=== PATIENT | male | born 1995 | race Hispanic/Latino ===

== ENCOUNTER 2017-05-14 12:41 | Inpatient (IN) | payer MEDICAID, OTHER ==
[2017-05-14 12:55] VITALS: O2SAT 100
--- NOTE | 2017-05-14 13:22 | ED PDOC ---
HPI: Psych/Substance Abuse Time Seen by Provider: 05/14/17 12:52 Chief Complaint (Nursing): Psychiatric Evaluation Chief Complaint (Provider): Psychiatric Evaluation History Per: Patient History/Exam Limitations: no limitations Suicide/Self Injury Attempted (Context): Other (scratching himself) Modifying Factor(s): None Associated Symptoms: Paranoia Additional Complaint(s): 22 year old male brought in by EMS presents to ED for bizarre behavior and as has a history of autism as per Thierry. EMS states patient was found wandering around outside and acting bizarrely. Patient states that he ran away from home and believes his family is after him. Notes that he hears their voices when they are not present physically. Denies headache but states that his "mind is hurting". (+) scratching his own face. Notes that he has not taken lithium or Zyprexa today. PCP: None Past Medical History Reviewed: Historical Data, Nursing Documentation, Vital Signs Vital Signs: Last Vital Signs Temp 98.0 F 05/14/17 12:47 Pulse 102 H 05/14/17 12:47 Resp 16 05/14/17 12:47 BP 124/90 05/14/17 12:47 Pulse Ox 100 05/14/17 12:47 - Medical History PMH: Bipolar Disorder, Schizophrenia Denies: Diabetes, Hepatitis, HIV, HTN, Seizures, Sexually Transmitted Disease - Family History Family History: States: Unknown Family Hx - Living Arrangements Living Arrangements: With Family - Social History Current smoker - smoking cessation education provided: No Ex-Smoker (has not smoked in the last 12 months): No Alcohol: None Drugs: Denies - Immunization History Hx Tetanus Toxoid Vaccination: No Hx Influenza Vaccination: No Hx Pneumococcal Vaccination: No - Home Medications Home Medications: Ambulatory Orders Medication Instructions Recorded Ziprasidone [Geodon] 80 mg PO BID 05/14/17 - Allergies Allergies/Adverse Reactions: Allergies Allergy/AdvReac Type Severity Reaction Status Date / Time No Known Allergies Allergy Verified 05/14/17 12:47 Review of Systems ROS Statement: Except As Marked, All Systems Reviewed And Found Negative Neurological: Negative for: Headache Psych: Positive for: Psychosis ((+) auditory hallucinations - hearing family), Other ((+) self-injury) Physical Exam - Reviewed Nursing Documentation Reviewed: Yes Vital Signs Reviewed: Yes - Physical Exam Appears: Positive for: Non-toxic, No Acute Distress Head Exam: Positive for: ATRAUMATIC, NORMOCEPHALIC Skin: Positive for: Normal Color (superficial abrasions noted to face), Warm, Dry Eye Exam: Positive for: Normal appearance ENT: Positive for: Normal ENT Inspection Neck: Positive for: Normal, Painless ROM Cardiovascular/Chest: Positive for: Regular Rate, Rhythm. Negative for: Murmur Respiratory: Positive for: Normal Breath Sounds. Negative for: Respiratory Distress Gastrointestinal/Abdominal: Positive for: Normal Exam, Soft. Negative for: Tenderness Back: Positive for: Normal Inspection Extremity: Positive for: Normal ROM, Other (Superficial abrasions noted to bilateral hands). Negative for: Deformity Neurologic/Psych: Positive for: Alert, Oriented, Mood/Affect (smiling, cooperative). Negative for: Motor/Sensory Deficits - Laboratory Results Result Diagrams: 05/14/17 13:42 05/14/17 13:42 - ECG O2 Sat by Pulse Oximetry: 100 (RA) Pulse Ox Interpretation: Normal Medical Decision Making Medical Decision Makin Initial impression: autism, paranoia Initial plan: * CT HEAD * EtOH serum * Labs * UDrug screen * [place] * Crisis eval * 1:1 OBS * UA Scribe Attestation: Documented by Adry Del Rosario, acting as a scribe for Jaden Cuba. Provider Scribe Attestation: All medical record entries made by the Scribe were at my direction and personally dictated by me. I have reviewed the chart and agree that the record accurately reflects my personal performance of the history, physical exam, medical decision making, and the department course for this patient. I have also personally directed, reviewed, and agree with the discharge instructions and disposition. ED OBSERVATION Date of observation admission: 05/14/17 Time of observation admission: 13:02 - Observation admission statement Patient is being placed in observation because:: crisis eval - Progress Note Progress Note: 05/14/17 15:[address] head w/o contrast: negative 05/14/17 17:33 Pt. evaluated by crisis and arrangements made for admission at the request of Dr. Mendoza. 05/14/17 20:41 Pt.'s mother arrived in ED and report that they do not have POA and she does agree with care. Disposition - Clinical Impression Clinical Impression: Schizophrenia, unspecified - Patient ED Disposition Is Patient to be Admitted: Yes - Disposition Disposition Time: 17:33 Condition: STABLE
[2017-05-14 13:52] LABS: BASO % 0.5 % (0.0-2.0); EOS % 0.3 % (0.0-4.0); LYMPH # 0.9 K/uL (1.0-4.3); LYMPH % 14.7 % (20.0-40.0); MEAN CELL VOLUME 91.2 fl (80.0-94.0); MEAN CORPUSCULAR HEMOGLOBIN 30.7 pg (27.0-31.0); MEAN CORPUSCULAR HGB CONC 33.6 g/dL (33.0-37.0); MEAN PLATELET VOLUME 8.2 fl (7.2-11.7); MONO # 0.5 K/uL (0.0-0.8); MONO % 7.9 % (0.0-10.0); NEUT # 4.5 K/uL (1.8-7.0); NEUT % 76.6 % (50.0-75.0); NRBC % 0.1 % (0.0-0.0); RED CELL DISTRIBUTION WIDTH 13.4 % (11.5-14.5); WHITE BLOOD COUNT 5.8 K/uL (4.8-10.8)
[2017-05-14 14:17] LABS: ALB/GLOB RATIO 1.7 (1.0-2.1); ALCOHOL SERUM < 10 mg/dl (0-10); ALKALINE PHOSPHATASE 65 U/L (38-126); ALT/SGPT 28 U/L (21-72); AST/SGOT 22 U/L (17-59); BILIRUBIN,TOTAL 0.5 mg/dl (0.2-1.3); BLOOD UREA NITROGEN 13 mg/dl (9-20); CALCIUM 9.7 mg/dL (8.4-10.2); CARBON DIOXIDE 25 mmol/L (22-30); CHLORIDE 106 mmol/L (98-107); GFR AFRICAN-AMERICAN > 60; GLUCOSE,RANDOM 96 mg/dL (75-110); SODIUM 143 mmol/l (132-148); TOTAL PROTEIN 7.1 G/DL (6.3-8.2)
--- NOTE | 2017-05-14 14:48 | CT ---
PROCEDURE: CT HEAD WITHOUT CONTRAST. HISTORY: "mind hurting" COMPARISON: None available. TECHNIQUE: Axial computed tomography images were obtained through the head/brain without intravenous contrast. Radiation dose: Total exam DLP = 1329.04 mGy-cm. This CT exam was performed using one or more of the following dose reduction techniques: Automated exposure control, adjustment of the mA and/or kV according to patient size, and/or use of iterative reconstruction technique. FINDINGS: HEMORRHAGE: No intracranial hemorrhage. BRAIN: No mass effect or edema. No atrophy or chronic microvascular ischemic changes. VENTRICLES: Unremarkable. No hydrocephalus. CALVARIUM: Unremarkable. PARANASAL SINUSES: Unremarkable as visualized. No significant inflammatory changes. MASTOID AIR CELLS: Unremarkable as visualized. No inflammatory changes. OTHER FINDINGS: None. IMPRESSION: Normal CT of the Head. No intracranial mass, hemorrhage or evidence of acute infarct.
[2017-05-14 14:58] LABS: RBC URINE 3 /hpf (0-3); URINE BACTERIA RARE (<OCC); URINE BILIRUBIN NEGATIVE (NEGATIVE); URINE BLOOD NEGATIVE (NEGATIVE); URINE COLOR YELLOW (YELLOW); URINE GLUCOSE (UA) NEG (Normal); URINE KETONE NEGATIVE (NEGATIVE); URINE LEUKOCYTE ESTERASE NEG Leu/uL (Negative); URINE PROTEIN 30 mg/dL (NEGATIVE); URINE UROBILINOGEN 0.2-1.0 mg/dL (0.2-1.0); WBC URINE 1 /hpf (0-5)
[2017-05-14 18:56] VITALS: RESP 18
[2017-05-14] MEDS ORDERED: Alum-Mag Hydrox-Simethicone Susp (30 mL) PO PRN (21:30)
[2017-05-14] MEDS ORDERED: Magnesium Hydroxide Susp 30 ml UD PO PRN (21:30)
--- NOTE | 2017-05-14 21:44 | PCM.BM ---
<Brooklyn Goss Arlette - Last Filed: 05/14/17 21:41> Treatment Plan Problems - Problems identified on initial assessmt Ineffective impulase control Date Initiated: 05/14/17 Time Initiated: 21:42 Assessment reference: NA Status: Active Altered Thought process Date Initiated: 05/14/17 Time Initiated: 21:42 Assessment reference: NA Status: Active Treatment assets and liabiliti Patient Assests: ADL independent, physically healthy, negotiates basic needs Patient Liabilities: auditory impairment (chronic mental illness), other ( chronic mental illness) - Milieu Protocol Maintain good personal hygiene: daily Remind patient to perform daily oral care , daily Assist patient to perform ADL's, every shift Encourage regular showers Maintain personal safety: daily Educate patient to report safety concerns to staff, every shift Monitor environment for contraband/sharps Medication safety: Monitor for expected outcome, potential side effects: daily, Assess barriers to learning: daily, Assess readiness for medication education: every shift <Shereen Hinkle - Last Filed: 05/16/17 16:35> Treatment Plan Problems - Problems identified on initial assessmt High Risk :Injury Date Initiated: 05/16/17 Time Initiated: 16:36 Assessment reference: NA Status: Active <Ankur No - Last Filed: 05/17/17 14:49> Family Contact Family involvement: Famliy/SO not involved Family contact: Patient declines to allow family contact at present Family contact name: Carmenza Hayes (Pt's state appointed guardian) [phone] Family contacted how many times per week?: 3 - Outside Agency Agency 1 Care involvment: Following patient during stay, Information-sharing Agency contact name: Karmen Galdamez [phone] Agency contact number: Pressure Controller (Kmimie Rider) received call from Karmen Perez behavioral health helpdesk analyst (Denice [phone]) to discuss precursors to patients hospitalization and provide necessary collateral. As per Denice, patients mother is not patients power of securities attorney. Patient has a state appointed guardian (Carmenza Hayes [phone]) for the past year. Pressure Controller inquired if there is a reason as to why mother was not given POA. Denice denies having knowledge of any abuse/trauma history. Denice reports mother is a trigger for patient and their volatile relationship made giving POA to mother inappropriate. Patient does not have history of aggressive or violent behaviors while decompensated. Denice reports patient becomes delusional, experiences increase in AH and tends to wander when symptomatic. Pressure Controller inquired about mental health services provided to patient by Karmen Perez. Denice reports patient has direct care staff available 08/04, has frequent sessions with behavioral health helpdesk analyst and has a psychiatrist visit every/every other Saturday. Patient is welcome to return to nursing home upon stabilization. Karmen Perez staff to pick-up patient from [facility] personally once patient is anticipated for discharge. Pressure Controller requested that an updated medication list be faxed to [facility]. Discharge/Continuing Care - Education Needs Education Needs: Family Medication, Patient Medication, Patient Anger Management skills, Patient Community resources, Patient Activities of Daily Living, Patient Health Practices/Safety, Patient Personal Hygiene/Grooming - Discharge Discharge Criteria: Tolerates medication w/o severe side effects, Free of agitation, Normal sleep pattern Discharge to:: Jail - Treatment Team Participation Was Patient/Family/SO present at Treatment Team Meeting: Yes
--- NOTE | 2017-05-15 09:14 | CP.PCM.CON ---
History of Present Illness - History of Present Illness History of Present Illness: Attending: Dr Mendoza Reason for Consult: Medical magagement of HTN Chief complaint: Bizarre behaviour HPI: The Hx is obtained from the patient and from his medical records, He is a 22 years old male noncompliant with medication, and has hx of Schizophrenia, autism and HTN. He wondered off from his senior living [place] and acting in a Bizarre way. he refers Audible hallucinations that is telling him to hurt himself. No headaches but some dizziness. No headaches, coughing, nausea nor vomits. no fever. PMH: Bipolar Disorder, Schizophrenia; HTN; Autism? PSH: No surgical history SH: Smokes occasionally; No alcohol. No illegal drug use; Lives in a senior living FH: Unknown family hx Allergies: NKDA Review of Systems - Constitutional Constitutional: absent: Anorexia, Chills, Fatigue, Fever - EENT Eyes: Requires Corrective Lenses. absent: Diplopia, Floaters, Sees Flashes Ears: absent: Decreased Hearing, Ear Discharge, Ear Pain, Tinnitus - Cardiovascular Cardiovascular: absent: Chest Pain, Dyspnea, Palpitations - Respiratory Respiratory: Cough - Gastrointestinal Gastrointestinal: absent: Constipation, Diarrhea, Nausea, Vomiting - Genitourinary Genitourinary: absent: Dysuria, Flank Pain, Hematuria, Urinary Frequency - Musculoskeletal Musculoskeletal: absent: Arthralgias, Back Pain, Myalgias - Integumentary Integumentary: absent: Pruritus, Rash, Skin Ulcer, Sores, Striae, Swelling - Neurological Neurological: absent: Confusion, Focal Weakness, Headaches, Memory Loss - Psychiatric Psychiatric: Anxiety, Depression. absent: Panic Attacks - Endocrine Endocrine: absent: Palpitations, Polydipsia, Polyphagia, Polyuria - Hematologic/Lymphatic Hematologic: absent: Easy Bruising Past Patient History - Infectious Disease Hx of Infectious Diseases: None - Past Medical History & Family History Past Medical History?: Yes - Past Social History Smoking Status: Light Smoker < 10 Cigarettes Daily Chewing Tobacco Use: No Cigar Use: No Alcohol: None Drugs: Denies Home Situation {Lives}: Other - CARDIAC Hx Hypertension: No - PULMONARY Hx Respiratory Disorders: No - NEUROLOGICAL Hx Seizures: No - HEENT Hx HEENT Problems: No - RENAL Hx Chronic Kidney Disease: No - ENDOCRINE/METABOLIC Hx Endocrine Disorders: No - HEMATOLOGICAL/ONCOLOGICAL Hx Blood Disorders: No Hx Human Immunodeficiency Virus (HIV): No - INTEGUMENTARY Hx Dermatological Problems: No - MUSCULOSKELETAL/RHEUMATOLOGICAL Hx Musculoskeletal Disorders: No - GASTROINTESTINAL Hx Gastrointestinal Disorders: No - GENITOURINARY/GYNECOLOGICAL Hx Genitourinary Disorders: No Hx Sexually Transmitted Disorders: No - PSYCHIATRIC Hx Bipolar Disorder: Yes Hx Schizophrenia: Yes - SURGICAL HISTORY Hx Surgeries: No - ANESTHESIA Hx Anesthesia: No Meds Allergies/Adverse Reactions: Allergies Allergy/AdvReac Type Severity Reaction Status Date / Time No Known Allergies Allergy Verified 05/14/17 12:47 - Medications Medications: Current Medications Acetaminophen (Tylenol 325mg Tab) 650 mg PO Q4 PRN PRN Reason: Pain, moderate (4-7) Al Hydrox/Mg Hydrox/Simethicone (Maalox Plus 30 Ml) 30 ml PO Q4 PRN PRN Reason: Dyspepsia Diphenhydramine HCl (Benadryl) 50 mg IM Q6 PRN PRN Reason: Extrapyramidal S/S Unable PO Diphenhydramine HCl (Benadryl) 50 mg PO Q6 PRN PRN Reason: Extrapyramidal Symptoms Diphenhydramine HCl (Benadryl) 50 mg PO HS PRN PRN Reason: Sleep Last Admin: 05/14/17 23:15 Dose: 50 mg Haloperidol (Haldol) 5 mg PO Q4 PRN PRN Reason: Agitation Last Admin: 05/14/17 23:15 Dose: 5 mg Haloperidol Lactate (Haldol) 5 mg IM Q4 PRN PRN Reason: Agitation, Unable to Take PO Lorazepam (Ativan) 2 mg IM Q4 PRN PRN Reason: Anxiety/Agitation,Unable PO Lorazepam (Ativan) 1 mg PO Q4 PRN PRN Reason: Anxiety/Agitation Magnesium Hydroxide (Milk Of Magnesia) 30 ml PO HS PRN PRN Reason: Constipation Physical Exam - Head Exam Head Exam: ATRAUMATIC, NORMAL INSPECTION, NORMOCEPHALIC - Eye Exam Eye Exam: EOMI, Normal appearance Pupil Exam: NORMAL ACCOMODATION, PERRL - ENT Exam ENT Exam: Mucous Membranes Moist, Normal Exam, Normal External Ear Exam, Normal Oropharynx - Neck Exam Neck exam: Positive for: Full Rom, Lymphadenopathy, Normal Inspection - Respiratory Exam Respiratory Exam: Clear to Auscultation Bilateral. absent: Rales, Rhonchi, Wheezes - Cardiovascular Exam Cardiovascular Exam: REGULAR RHYTHM, RRR, +S1, +S2 - GI/Abdominal Exam GI & Abdominal Exam: Normal Bowel Sounds, Soft. absent: Mass, Organomegaly, Tenderness - Rectal Exam Rectal Exam: Deferred - Extremities Exam Extremities exam: Positive for: normal inspection. Negative for: calf tenderness, joint swelling, pedal edema - Back Exam Back exam: NORMAL INSPECTION. absent: FULL ROM - Neurological Exam Neurological exam: Alert, CN II-XII Intact, Oriented x3, Reflexes Normal - Psychiatric Exam Psychiatric exam: Normal Affect, Normal Mood - Skin Skin Exam: Dry, Intact, Normal Color, Warm Results - Vital Signs Recent Vital Signs: Last Vital Signs Temp 97.1 F L 05/15/17 09:00 Pulse 77 05/15/17 09:00 Resp 18 05/15/17 09:00 BP 134/76 05/15/17 09:00 Pulse Ox 100 05/14/17 21:42 - Labs Result Diagrams: 05/14/17 13:42 05/14/17 13:42 - Imaging and Cardiology CT scan - head Status: Image reviewed by me, Report reviewed by me Additional comment: No hemorrhage nor sign of cerebral ischemia Assessment & Plan - Assessment and Plan (Free Text) Assessment: #.Schizophrenia #. Bipolar #. HTN Plan: 22 years old male noncompliant with medication, and has hx of Schizophrenia, autism and HTN. He wondered off from his senior living [place] and acting in a Bizarre way. He refers Audible hallucinations that is telling him to hurt himself. No headaches but some dizziness. No headaches, coughing, nausea nor vomits. no fever. #.Schizophrenia #. Bipolar - Psychiatric management #. HTN - follow Blood pressures #. Code status: Full - Date & Time Date: 05/15/17 Time: 09:14
[2017-05-15 09:20] LABS: T4 8.68 ug/dl (5.5-11.0)
[2017-05-15 09:34] LABS: THYROID STIMULATING HORMONE 3.25 mIU/ML (0.46-4.68)
--- NOTE | 2017-05-15 13:49 | PCM.PSYCH ---
Initial Psychiatric Evaluation - Initial Psychiatric Evaluation Type of Admission: Voluntary Legal Status: Capacity Chief Complaint (in patient's own words): i ran away Patient's Reaction to Hospitalization: cooperative History of Present Illness and Precipitating Events: 22 yo male, apparently with a history of bipolar disorder. suspected intellectual disability. pt apparently was living in a half-way since his teen years per pt, who appears to be a poor historian. he apparently ran away. he is vague about where he was staying, first stating he went to [facility] and then stating he [facility]. he does report seeing a woman with red hair and following her and trying to touch her because he thought she was his girlfriend. he reports some psychotic symptoms that seem to involve some faith preoccupations with reading a chapter from the book of Florian and then feeling the earth move under his feet. he starts to become animated when telling about these events. he also does not feel there was anything wrong with touching a stranger because in his mind she was his girlfriend. he is walking around the unit, laughing. he is talking to peers. he attempts to engage socially. he seems to be somewhat religiously preoccupied on one hand and also preoccupied with finding a girlfriend also. Current Medications: Active Medications Generic Name Dose Route Start Last Admin Trade Name Jamesq PRN Reason Stop Dose Admin Acetaminophen 650 mg 05/14/17 21:30 Tylenol 325mg Tab PO Q4 PRN Pain, moderate (4-7) Al Hydrox/Mg Hydrox/Simethicone 30 ml 05/14/17 21:30 Maalox Plus 30 Ml PO Q4 PRN Dyspepsia Diphenhydramine HCl 50 mg 05/14/17 21:30 Benadryl IM Q6 PRN Extrapyramidal S/S Unable PO Diphenhydramine HCl 50 mg 05/14/17 21:30 Benadryl PO Q6 PRN Extrapyramidal Symptoms Diphenhydramine HCl 50 mg 05/14/17 21:34 05/14/17 23:15 Benadryl PO 50 mg HS PRN Administration Sleep Haloperidol 5 mg 05/14/17 21:30 05/14/17 23:15 Haldol PO 5 mg Q4 PRN Administration Agitation Haloperidol Lactate 5 mg 05/14/17 21:30 Haldol IM Q4 PRN Agitation, Unable to Take PO Lorazepam 2 mg 05/14/17 21:30 Ativan IM Q4 PRN Anxiety/Agitation,Unable PO Lorazepam 1 mg 05/14/17 21:30 Ativan PO Q4 PRN Anxiety/Agitation Magnesium Hydroxide 30 ml 05/14/17 21:30 Milk Of Magnesia PO HS PRN Constipation pt recalls taking zyprexa and lithium Past Psychiatric History - Past Psychiatric History Previous Treatment History: Inpatient Prior Professional Help: unclear regarding specifics History of Abuse: denies History of ETOH/Drug Use: denies History of Family Illness: unknown Pertinent Medical Hx (Current Medical&Sleep Prob, Allergies): Allergies Allergy/AdvReac Type Severity Reaction Status Date / Time No Known Allergies Allergy Verified 05/14/17 12:47 Ziprasidone [Geodon] 80 mg PO BID 05/14/17 Review of Systems - Psychiatric Psychiatric: As Per HPI, Abnormal Sleep Pattern, Behavioral Changes, Hallucinations, Paranoia Mental Status Examination - Personal Presentation Personal Presentation: Looks stated age - Affect Affect: Broad - Motor Activity Motor Activity: Other (restless) - Reliability in Providing Information Reliability in Providing Information: Poor, due to alteration in thoughts, Poor , due to cognitve impairment - Speech Speech: Tangential - Mood Mood: Euphoric - Formal Thought Process Formal Thought Process: Delusions, Loosening of associations, Flight of ideas - Hallucinations/Delusions Additional comments: faith preoccupation - Obsessions/Compulsions Obsessions: No Compulsions: No - Cognitive Functions Orientation: Person, Place, Situation, Time Sensorium: Alert Attention/Concentration: Easily distracted Abstract Thinking: Trout Estimate of Intelligence: Below average Judgement: Intact, as evidence by: Insight regarding need for hospitalization ( agrees with taking meds and being in hospital today) Memory: Recent intact, as evidence by: Ability to recall events of the day - Risk Risk: Elopement (ran from home/half-way), Diminished functioning - Strength & Assets Inventory Strength & Assets Inventory: Family support DSM 5 DX - DSM 5 DSM 5 Diagnosis: bipolar disorder, manic r/o intellectual disability, mild - Recommended/Plan of Treatment Treatment Recommendations and Plan of Treatment: admit to [facility] for safety and observation gather collateral information provide supportive therapy adjust medications- restart zyprexa and t/c starting lithium hospitalist consult disposition planning Projected ELOS: 5-7 days Prognosis: fair
[2017-05-15] MEDS: OLANZapine 5 mg Disintegrating Tab PO SCH (21:31)
--- NOTE | 2017-05-16 08:46 | PCM.PYCHPN ---
Psychiatric Progress Note - Psychiatric Progress Note Patient seen today, length of contact: discussed with team Patient Chief Complaint: i am okay Problems Identified/Issues Discussed: pt states he slept well. he denies medication side effects. he is pleasant and agreeable. somewhat child-like in his interactions. he is allowing team to call his family. Medication Change: Yes (increase zyprexa) Medical Record Reviewed: Yes Mental Status Examination - Cognitive Function Orientation: Person, Place, Situation, Time Memory: Intact Attention: WNL Concentration: WNL Association: WNL Fund of Knowledge: WN Decription of patient's judgement and insights: fair - Mood Mood: Euphoric - Affect Affect: Broad - Speech Speech: Appropriate - Formal Thought Process Formal Thought Process: Delusions, Loosening of associations, Flight of ideas - Suicidal Ideation Suicidal Ideation: No - Homicidal Ideation Homicidal Ideation: No Goal/Treatment Plan - Goal/Treatment Plan Need for Continued Stay: Remain at risks for inpatient hospitalization, Severe functional impairment Progress Toward Problem(s) and Goals/Treatment Plan: bipolar disorder intellectual disability will increase zyprexa to 5mg bid outreach to collateral supports disposition planning Estimated Date of D/C: 05/21/17
[2017-05-16] MEDS: OLANZapine 5 mg Disintegrating Tab PO SCH ×2 (10:21→21:36)
[2017-05-16] MEDS: DiphenhydrAMINE 50 mg/ml Inj IM PRN (13:20)
--- NOTE | 2017-05-16 13:52 | CP.PCM.PCO ---
Physician Communication Note - Physician Communication Note Physician Communication Note: Patient placed in 4 point restraints at 1:20 pm
--- NOTE | 2017-05-16 13:56 | CP.PCM.PN ---
Subjective - Date & Time of Evaluation Date of Evaluation: 05/16/17 Time of Evaluation: 13:54 - Subjective Subjective: Called to see patient post CODE QUIROZ. Seen and evaluated the patient in seclusion room in 4 point restraints. Patient was reported to have hit head against wall with great force 2x. States he has blurry vision, however is not agreeable nor cooperative with exam. Unreliable historian at this time. Agitatied and states he wants to murder and abuse everyone, his mother, other family members. No appreciable wounds or hematoma, atraumatic on exam. Will order CT scan head STAT, patient may go once he does not require restraints. Discussed with Dr. Mendoza. Objective - Vital Signs/Intake and Output Vital Signs (last 24 hours): Temp Pulse Resp BP Pulse Ox 96.8 F L 88 18 111/87 100 05/16/17 09:00 05/16/17 09:00 05/16/17 09:00 05/16/17 09:00 05/14/17 21:42 - Medications Medications: Current Medications Acetaminophen (Tylenol 325mg Tab) 650 mg PO Q4 PRN PRN Reason: Pain, moderate (4-7) Al Hydrox/Mg Hydrox/Simethicone (Maalox Plus 30 Ml) 30 ml PO Q4 PRN PRN Reason: Dyspepsia Diphenhydramine HCl (Benadryl) 50 mg IM Q6 PRN PRN Reason: Extrapyramidal S/S Unable PO Diphenhydramine HCl (Benadryl) 50 mg PO Q6 PRN PRN Reason: Extrapyramidal Symptoms Diphenhydramine HCl (Benadryl) 50 mg PO HS PRN PRN Reason: Sleep Last Admin: 05/14/17 23:15 Dose: 50 mg Haloperidol (Haldol) 5 mg PO Q4 PRN PRN Reason: Agitation Last Admin: 05/14/17 23:15 Dose: 5 mg Haloperidol Lactate (Haldol) 5 mg IM Q4 PRN PRN Reason: Agitation, Unable to Take PO Lorazepam (Ativan) 2 mg IM Q4 PRN PRN Reason: Anxiety/Agitation,Unable PO Lorazepam (Ativan) 1 mg PO Q4 PRN PRN Reason: Anxiety/Agitation Magnesium Hydroxide (Milk Of Magnesia) 30 ml PO HS PRN PRN Reason: Constipation Olanzapine (Zyprexa Zydis) 5 mg PO [facility] Last Admin: 05/15/17 21:31 Dose: 5 mg Olanzapine (Zyprexa Zydis) 5 mg PO DAILY [facility] Last Admin: 05/16/17 10:21 Dose: 5 mg
--- NOTE | 2017-05-16 14:02 | CP.PCM.PN ---
Subjective - Date & Time of Evaluation Date of Evaluation: 05/16/17 Time of Evaluation: 13:20 - Subjective Subjective: Patient placed in 4 point restraints at 1:20 pm. Patient became acutely agitated and threatening after becoming upset by a phone call from his mother. Patient was threatening to kill others, made attempts to harm others, kicked a staff member and was punching objects in the room. Attempts to calm the patient down were unsuccessful. Patient was given IM Haldol/Ativan/Benadryl and is now on 1:1 observation. Objective - Vital Signs/Intake and Output Vital Signs (last 24 hours): Temp Pulse Resp BP Pulse Ox 96.8 F L 88 18 111/87 100 05/16/17 09:00 05/16/17 09:00 05/16/17 09:00 05/16/17 09:00 05/14/17 21:42 - Medications Medications: Current Medications Acetaminophen (Tylenol 325mg Tab) 650 mg PO Q4 PRN PRN Reason: Pain, moderate (4-7) Al Hydrox/Mg Hydrox/Simethicone (Maalox Plus 30 Ml) 30 ml PO Q4 PRN PRN Reason: Dyspepsia Diphenhydramine HCl (Benadryl) 50 mg IM Q6 PRN PRN Reason: Extrapyramidal S/S Unable PO Diphenhydramine HCl (Benadryl) 50 mg PO Q6 PRN PRN Reason: Extrapyramidal Symptoms Diphenhydramine HCl (Benadryl) 50 mg PO HS PRN PRN Reason: Sleep Last Admin: 05/14/17 23:15 Dose: 50 mg Haloperidol (Haldol) 5 mg PO Q4 PRN PRN Reason: Agitation Last Admin: 05/14/17 23:15 Dose: 5 mg Haloperidol Lactate (Haldol) 5 mg IM Q4 PRN PRN Reason: Agitation, Unable to Take PO Lorazepam (Ativan) 2 mg IM Q4 PRN PRN Reason: Anxiety/Agitation,Unable PO Lorazepam (Ativan) 1 mg PO Q4 PRN PRN Reason: Anxiety/Agitation Magnesium Hydroxide (Milk Of Magnesia) 30 ml PO HS PRN PRN Reason: Constipation Olanzapine (Zyprexa Zydis) 5 mg PO HS MADDISON Last Admin: 05/15/17 21:31 Dose: 5 mg Olanzapine (Zyprexa Zydis) 5 mg PO DAILY MADDISON Last Admin: 05/16/17 10:21 Dose: 5 mg
--- NOTE | 2017-05-16 18:53 | CT ---
PROCEDURE: CT HEAD WITHOUT CONTRAST. HISTORY: HIT HEAD TWICE ON WALL COMPARISON: Noncontrast head CT performed 05/14/17 TECHNIQUE: Axial computed tomography images were obtained through the head/brain without intravenous contrast. Radiation dose: Total exam DLP = 905.91 mGy-cm. This CT exam was performed using one or more of the following dose reduction techniques: Automated exposure control, adjustment of the mA and/or kV according to patient size, and/or use of iterative reconstruction technique. FINDINGS: HEMORRHAGE: No intracranial hemorrhage. BRAIN: No mass effect or edema. The bearden-white matter differentiation appears intact. VENTRICLES: No hydrocephalus. CALVARIUM: Unremarkable. PARANASAL SINUSES: Unremarkable as visualized. No significant inflammatory changes. MASTOID AIR CELLS: Unremarkable as visualized. No inflammatory changes. OTHER FINDINGS: None. IMPRESSION: No acute intracranial pathology identified.
--- NOTE | 2017-05-17 10:19 | PCM.PYCHPN ---
Psychiatric Progress Note - Psychiatric Progress Note Patient seen today, length of contact: discussed with team Patient Chief Complaint: i feel better today Problems Identified/Issues Discussed: pt with no c/o head ache. better control of behaviors today and does well until contact with mother. no c/o side effects with the zyprexa. denies any suicidal or homicidal thoughts. Medication Change: Yes (increase zyprexa) Medical Record Reviewed: Yes Mental Status Examination - Cognitive Function Orientation: Person, Place, Situation, Time Memory: Intact Attention: WNL Concentration: WNL Association: WNL Fund of Knowledge: WNL Decription of patient's judgement and insights: fair - Mood Mood: Anxious - Affect Affect: Broad - Speech Speech: Appropriate - Formal Thought Process Formal Thought Process: Delusions, Loosening of associations, Flight of ideas - Suicidal Ideation Suicidal Ideation: No - Homicidal Ideation Homicidal Ideation: No Goal/Treatment Plan - Goal/Treatment Plan Need for Continued Stay: Remain at risks for inpatient hospitalization, Severe functional impairment Progress Toward Problem(s) and Goals/Treatment Plan: bipolar disorder intellectual disability will increase zyprexa to 5mg in am and 10mg hs outreach to collateral supports will dc the one to one as guardian has restricted contact with mother [facility], but it is unclear when meds were last given and what he was taking disposition planning- [facility] when stable Estimated Date of D/C: 05/21/17
[2017-05-17] MEDS: OLANZapine 5 mg Disintegrating Tab PO SCH (10:24)
[2017-05-17] MEDS: OLANZapine 10 mg Disintegrating Tab PO SCH (21:39)
[2017-05-17] MEDS: DiphenhydrAMINE 50 mg/ml Inj IM PRN (21:42)
--- NOTE | 2017-05-18 10:08 | PCM.PYCHPN ---
Psychiatric Progress Note - Psychiatric Progress Note Patient seen today, length of contact: discussed with team Patient Chief Complaint: i will be okay Problems Identified/Issues Discussed: pt with no complaints today. he had an episode of aggression last night. he denies medication side effects. Medication Change: Yes (increase zyprexa and start depakote) Medical Record Reviewed: Yes Mental Status Examination - Cognitive Function Orientation: Person, Place, Situation, Time Memory: Intact Attention: WNL Concentration: WNL Association: WNL Fund of Knowledge: WNL Decription of patient's judgement and insights: fair - Mood Mood: Anxious - Affect Affect: Broad - Speech Speech: Appropriate - Formal Thought Process Formal Thought Process: Delusions, Loosening of associations, Flight of ideas - Suicidal Ideation Suicidal Ideation: No - Homicidal Ideation Homicidal Ideation: No Goal/Treatment Plan - Goal/Treatment Plan Need for Continued Stay: Remain at risks for inpatient hospitalization, Severe functional impairment Progress Toward Problem(s) and Goals/Treatment Plan: bipolar disorder intellectual disability will increase zyprexa to 5mg bid am and 10mg hs start depakote 500mg bid have reviewed fax from [facility], but it is unclear when meds were last given and what he was taking disposition planning- return to [facility] when stable Estimated Date of D/C: 05/21/17
[2017-05-18] MEDS ORDERED: OLANZapine 5 mg Disintegrating Tab PO ONE (12:09)
[2017-05-18] MEDS: Divalproex 500 mg DR(BID formulation) PO SCH ×2 (12:14→18:14)
[2017-05-18] MEDS: OLANZapine 5 mg Disintegrating Tab PO SCH ×2 (12:29→18:10)
[2017-05-18] MEDS: OLANZapine 10 mg Disintegrating Tab PO SCH (21:53)
[2017-05-19] MEDS: OLANZapine 5 mg Disintegrating Tab PO SCH ×2 (09:13→17:15)
[2017-05-19] MEDS: Divalproex 500 mg DR(BID formulation) PO SCH ×2 (09:14→17:15)
--- NOTE | 2017-05-19 11:03 | PCM.PYCHPN ---
Psychiatric Progress Note - Psychiatric Progress Note Patient seen today, length of contact: discussed with team Patient Chief Complaint: i did okay Problems Identified/Issues Discussed: pt with no complaints today. he had no episodes of aggression last night. he denies medication side effects. Medication Change: No ( ) Medical Record Reviewed: Yes Mental Status Examination - Cognitive Function Orientation: Person, Place, Situation, Time Memory: Intact Attention: WNL Concentration: WNL Association: WNL Fund of Knowledge: WN Decription of patient's judgement and insights: fair - Mood Mood: Anxious - Affect Affect: Broad - Speech Speech: Appropriate - Formal Thought Process Formal Thought Process: Delusions, Loosening of associations, Flight of ideas - Suicidal Ideation Suicidal Ideation: No - Homicidal Ideation Homicidal Ideation: No Goal/Treatment Plan - Goal/Treatment Plan Need for Continued Stay: Remain at risks for inpatient hospitalization, Severe functional impairment Progress Toward Problem(s) and Goals/Treatment Plan: bipolar disorder intellectual disability will continue zyprexa 5mg bid am and 10mg hs continue depakote 500mg bid check depakote level saturday disposition planning- return to [facility] when stable Estimated Date of D/C: 05/21/17
[2017-05-19] MEDS: OLANZapine 10 mg Disintegrating Tab PO SCH (21:11)
[2017-05-20] MEDS: Divalproex 500 mg DR(BID formulation) PO SCH ×2 (10:00→17:09)
[2017-05-20] MEDS: OLANZapine 5 mg Disintegrating Tab PO SCH ×2 (10:00→17:10)
--- NOTE | 2017-05-20 11:16 | PCM.PYCHPN ---
Psychiatric Progress Note - Psychiatric Progress Note Patient seen today, length of contact: discussed with team Patient Chief Complaint: i feel okay Problems Identified/Issues Discussed: pt doing well last days. no aggression or agitation. tolerating room with a roomate. takes medications and denies side effects. Medication Change: No ( ) Medical Record Reviewed: Yes Mental Status Examination - Cognitive Function Orientation: Person, Place, Situation, Time Memory: Intact Attention: WNL Concentration: WNL Association: WNL Fund of Knowledge: [facility] Decription of patient's judgement and insights: fair - Mood Mood: Anxious - Affect Affect: Broad - Speech Speech: Appropriate - Formal Thought Process Formal Thought Process: Delusions, Loosening of associations, Flight of ideas Psychotic Thoughts and Behaviors: improving - Suicidal Ideation Suicidal Ideation: No - Homicidal Ideation Homicidal Ideation: No Goal/Treatment Plan - Goal/Treatment Plan Need for Continued Stay: Remain at risks for inpatient hospitalization, Severe functional impairment Progress Toward Problem(s) and Goals/Treatment Plan: bipolar disorder intellectual disability will continue zyprexa 5mg bid am and 10mg hs continue depakote 500mg bid- check level tomorrow with [facility] disposition planning- return to [facility]term this week if remains in control of his behaviors Estimated Date of D/C: 05/21/17
[2017-05-20] MEDS: OLANZapine 10 mg Disintegrating Tab PO SCH (21:20)
[2017-05-21 06:18] LABS: ALB/GLOB RATIO 1.5 (1.0-2.1); BILIRUBIN,TOTAL 0.3 mg/dl (0.2-1.3); TOTAL PROTEIN 6.9 G/DL (6.3-8.2)
[2017-05-21] MEDS: OLANZapine 5 mg Disintegrating Tab PO SCH ×2 (10:21→16:54)
[2017-05-21] MEDS: Divalproex 500 mg DR(BID formulation) PO SCH ×2 (10:22→16:54)
--- NOTE | 2017-05-21 10:48 | PCM.PYCHPN ---
Psychiatric Progress Note - Psychiatric Progress Note Patient seen today, length of contact: discussed with team Patient Chief Complaint: i feel good Problems Identified/Issues Discussed: pt doing well last 4 days. no aggression or agitation. tolerating room with a roomate and staying in behavioral control. takes medications and denies side effects. Diagnostic Results: depakote level 72 Medication Change: No ( ) Medical Record Reviewed: Yes Mental Status Examination - Cognitive Function Orientation: Person, Place, Situation, Time Memory: Intact Attention: WNL Concentration: WNL Association: WNL Fund of Knowledge: WNL Decription of patient's judgement and insights: fair - Mood Mood: Anxious - Affect Affect: Broad - Speech Speech: Appropriate - Formal Thought Process Formal Thought Process: Delusions, Loosening of associations, Flight of ideas Psychotic Thoughts and Behaviors: improving - Suicidal Ideation Suicidal Ideation: No - Homicidal Ideation Homicidal Ideation: No Goal/Treatment Plan - Goal/Treatment Plan Need for Continued Stay: Remain at risks for inpatient hospitalization, Severe functional impairment Progress Toward Problem(s) and Goals/Treatment Plan: bipolar disorder intellectual disability will continue zyprexa 5mg bid am and 10mg hs continue depakote 500mg bid- level and [facility] are [facility] disposition planning- return to [facility] this week if remains in control of his behaviors Estimated Date of D/C: 05/21/17
--- NOTE | 2017-05-21 15:36 | PCM.PYCHDC ---
Mental Status Examination - Mental Status Examination Orientation: Person, Place, Situation, Time Memory: Intact Mood: Anxious (regarding discharge) Affect: Broad Speech: Appropriate Attention: WNL Concentration: WNL Association: WNL Fund of Knowledge: WNL Formal Thought Process: No Impairment Description of patient's judgement and insight: fair Psychotic Thoughts and Behaviors: no acute psychotic symptoms today Suicidal Ideation: No Current Homicidal Ideation?: No Discharge Summary - Discharge Note Reason for Hospitalization: pt ran from correction. non-adherence with medications. Psychiatric History (includes Medical, Family, Personal Hx): history of schizoaffective disorder Laboratory Data: Abnormal Lab Results 05/21/17 05/21/17 05:50 05:50 Total Bilirubin 0.3 Direct Bilirubin 0.3 AST 22 ALT 28 Alkaline Phosphatase 55 Total Protein 6.9 Albumin 4.2 Globulin 2.8 Albumin/Globulin Ratio 1.5 Valproic Acid 72.0 Consultations:: List each consultation separately and include: 1. Reason for request. 2. Findings. 3. Follow-up Consultations: seen by hospitalist Summary of Hospital Course include:: 1. Description of specific treatment plan utilized for patients during their course of treatmen. 2. Summarize the time- course for resolution of acute symptoms and/or regressed behaviors. 3. Describe issues identified and worked on during hospitalization. 4. Describe medication utilized. 5. Describe medical problems identified and treated. 6. Reassessment of suicide risk Summary of Hospital Course: 22 yo male, apparently with a history of bipolar disorder. suspected intellectual disability. pt apparently was living in a correction since his teen years per pt, who appears to be a poor historian. he apparently ran away. he is vague about where he was staying, first stating he went [facility] and then stating he was at [facility]. he does report seeing a woman with red hair and following her and trying to touch her because he thought she was his girlfriend. he reports some psychotic symptoms that seem to involve some jain preoccupations with reading a chapter from the book of Florian and then feeling the earth move under his feet. he starts to become animated when telling about these events. he also does not feel there was anything wrong with touching a stranger because in his mind she was his girlfriend. he is walking around the unit, laughing. he is talking to peers. he attempts to engage socially. he seems to be somewhat religiously preoccupied on one hand and also preoccupied with finding a girlfriend also. hospital course: pt was admitted to [facility] and oriented to the unit. pt was placed on routine safety protocols. pt was seen by the hospitalist. pt was on a 1:1 supervision early on in his hospital course as he had to be restrained for aggressive/ agitated behavior that did not respond to verbal interventions. he was started on zyprexa and depakote and tolerated these medications. he was exhibiting good behavioral control for over 72 hours and was not appearing to be sedated or to have any side effects with his medications. his guardian was in contact with the treatment team and as pt's mother was an identified trigger to his behavioral outburst, her communications with the pt were restricted with the permission of the pt's guardian. at the time of discharge the patient was denying any suicidal or homicidal thoughts, plans or intent. - Final Diagnosis (DSM 5) Condition upon Discharge: STABLE DSM 5: schizoaffective disorder, bipolar type intellectual disability Disposition: HOME/ ROUTINE Follow-up Treatment Plan: follow up with aftercare as directed take medications as prescribed do not use alcohol, tobacco or other illicit substances call 911 if any suicidal or homicidal thoughts Prescriptions/Medication Reconciliation: Divalproex [Depakote DR(*BID*)] 500 mg PO BID #60 tcp OLANZapine [Zyprexa Zydis] 10 mg PO HS #30 odt OLANZapine [Zyprexa Zydis] 5 mg PO BID #60 odt - Smoking Cessation Smoking Cessation Medication prescribed: No Reason for not providing: does not want - Antipsychotic Medications Pt discharged on 2 or more routine antipsychotic medications: No
[2017-05-21 16:07] VITALS: BP 127/76; PULSE 90; TEMP 98.4
[2017-05-21] MEDS: OLANZapine 10 mg Disintegrating Tab PO SCH (21:06)
== END 2017-05-21 22:35 | disposition home or self-care (01) | DRG 430 ==
LOC: H.ER 12:41 → H.EROBSV 13:02 → OBSVTOIN 17:27 → H.ERHOLD 17:45 → H.PSYCH 21:22
PROVIDERS: ADMIT Psychiatry & Neurology Psychiatry; ATTEND Psychiatry & Neurology Psychiatry
PROC: GZ51ZZZ Individual Psychotherapy, Behavioral (ICD-10-PCS; 2017-05-14)
PROC: 3E0234Z Introduction of Serum, Toxoid and Vaccine into Muscle, Percutaneous Approach (ICD-10-PCS; 2017-05-14)
PROC: GZHZZZZ Group Psychotherapy (ICD-10-PCS; principal; 2017-05-15)
DX: F25.0 Schizoaffective disorder, bipolar type (principal); Z78.1 Physical restraint status; I10 Essential (primary) hypertension; F22 Delusional disorders; F84.0 Autistic disorder; F17.200 Nicotine dependence, unspecified, uncomplicated; F79 Unspecified intellectual disabilities; Z91.14 Patient's other noncompliance with medication regimen; Z91.83 Wandering in diseases classified elsewhere; H53.8 Other visual disturbances; R42 Dizziness and giddiness; R45.1 Restlessness and agitation; Z23 Encounter for immunization